=== PATIENT | male | born 1985 | race Caucasian/White ===

== ENCOUNTER 2022-07-14 09:33 | Emergency (ER) | payer MEDICAID ==
[~2022-07-14] VITALS: Ht 160 cm; Wt 65.8 kg
[~2022-07-14 09:33] MED LIST: CYCL-711 PO; NAPR-54 PO
[2022-07-14 09:52] VITALS: BP 125/88
--- NOTE | 2022-07-14 10:01 | NUR ---
Patient being evaluated by physician at bedside.
[2022-07-14] MEDS ORDERED: LIDOCAINE 5% 1 EA PATCH TP ONE (10:15)
[2022-07-14] MEDS ORDERED: KETOROLAC 15 MG/ML VIAL IM ONE (10:15)
[2022-07-14] MEDS ORDERED: ACYCLOVIR 200 MG CAP PO ONE (10:15)
[2022-07-14] MEDS ORDERED: ACYC400T14 PO (10:16)
--- NOTE | 2022-07-14 10:16 | NUR ---
Pt bibs for left upper back pain that radiates to chest x 2 days. Pt also has rash at site. Pain is 8/10, intermittent, worse with palpation. Pt is a/o x 4, vss, no ss of acute distress, breathing equal and unlabored, speech clear. has seen pt.
[2022-07-14] MEDS ORDERED: GABA300C PO (10:17)
[2022-07-14] MEDS ORDERED: LID5T TP (10:17)
[2022-07-14 11:01] VITALS: BP 122/82
--- NOTE | 2022-07-14 11:05 | NUR ---
Patient discharged with v/s stable. Written and verbal after care instructions given and explained. Patient alert, oriented and verbalized understanding of instructions. Ambulatory with steady gait. All questions addressed prior to discharge. ID band removed. Patient advised to follow up with PMD. Aware of px. Patient educated on indication of medication including possible reaction and side effects. Opportunity to ask questions provided and answered.
== END 2022-07-14 11:01 | disposition home or self-care (01) ==
LOC: MED 09:33
DX: B02.9 Zoster without complications (principal); F17.200 Nicotine dependence, unspecified, uncomplicated; Z79.899 Other long term (current) drug therapy
CPT/HCPCS: 90715; 96372; 99283; J1885